=== PATIENT | female | born 1970 | race African-American/Black ===

== ENCOUNTER 2017-03-03 13:44 | Emergency (ER) | payer OTHER ==
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
[~2017-03-03 13:44] MED LIST: COMPAZINE10 MG PO; ULTRAM PO; VICODIN 5/500 T1 TAB PO; ZITHROMAX PO
== END 2017-03-03 16:43 | disposition home or self-care (01) ==
LOC: CED 13:44 → CFTX 13:44
DX: S82.831A Other fracture of upper and lower end of right fibula, initial encounter for closed fracture (principal); S22.42XA Multiple fractures of ribs, left side, initial encounter for closed fracture; K21.9 Gastro-esophageal reflux disease without esophagitis; I10 Essential (primary) hypertension; F17.210 Nicotine dependence, cigarettes, uncomplicated; W18.00XA Striking against unspecified object with subsequent fall, initial encounter; Y93.89 Activity, other specified; Y92.69 Other specified industrial and construction area as the place of occurrence of the external cause; Y99.0 Civilian activity done for income or pay
CPT/HCPCS: 29505; 71101; 73552; 73590; 99284